=== PATIENT | male | born 1985 | race Caucasian/White ===

== ENCOUNTER 2018-05-21 18:40 | Emergency (ER) | payer OTHER ==
[2018-05-21] MEDS ORDERED: TERBUTALINE SULFATE INJ/PF 1 MG/1 ML SDV SUBCUT ONE (19:05)
--- NOTE | 2018-05-21 19:12 | ER Document Report ---
ED Medical Screen (RME) - General Chief Complaint: Penile Problem Stated Complaint: PENILE PROBLEMS Time Seen by Provider: 05/21/18 18:56 Notes: 32-year-old male patient reports waking up about 645 this morning with an erection. It has never gone down throughout the day. About 4 PM today he noticed that he could not put pants on to go help someone cut wood. He has been able to urinate through the erection. It is becoming somewhat painful. His regular medications are meloxicam and paroxetine. Patient did take some Benadryl about 5 PM and tried ice.. He has never had this problem in the past. I have greeted and performed a rapid initial assessment of this patient. A comprehensive ED assessment and evaluation of the patient, analysis of test results and completion of the medical decision making process will be conducted by additional ED providers. TRAVEL OUTSIDE OF THE [place] IN LAST 30 DAYS: No - Related Data Allergies/Adverse Reactions: iodine [Iodine] Allergy (Verified 05/21/18 18:42) Past Medical History Pulmonary Medical History: Reports: Hx Asthma Neurological Medical History: Denies: Hx Migraine, Hx Seizures Renal/ Medical History: Denies: Hx Peritoneal Dialysis - Immunizations Hx Diphtheria, Pertussis, Tetanus Vaccination: Yes Physical Exam - Vital signs Vitals: Temp Pulse Resp BP Pulse Ox 98.8 F 80 18 147/92 H 99 05/21/18 18:56 05/21/18 18:56 05/21/18 18:56 05/21/18 18:56 05/21/18 18:56 Course - Vital Signs Vital signs: Temp Pulse Resp BP Pulse Ox 98.8 F 80 18 147/92 H 99 05/21/18 18:56 05/21/18 18:56 05/21/18 18:56 05/21/18 18:56 05/21/18 18:56
[2018-05-21] MEDS ORDERED: PHENYLEPHRINE HCL INJ/PF 10 MG/1 ML SDV IM ONE ×3 (19:30→19:41)
[2018-05-21] MEDS ORDERED: PROMETHAZINE HCL 25 MG TABLET PO ONE (19:30)
[2018-05-21] MEDS ORDERED: OXYCODONE-ACETAMINOPHEN 5-325 MG TABLET PO ONE (19:30)
[2018-05-21] MEDS ORDERED: PHENYLEPHRINE HCL INJ/PF 10 MG/1 ML SDV SUBCUT ONE (19:48)
[2018-05-21] MEDS ORDERED: LIDOCAINE 1% INJ (10 MG/ML) 10 ML MDV INJ ONE (19:49)
[2018-05-21] MEDS ORDERED: HYDROMORPHONE HCL INJ/PF 2 MG/ML AMPULE IM ONE (19:50)
[2018-05-21 20:12] LABS: ABSOLUTE BASOPHILS # (AUTO) 0.1 10^3/uL (0.0-0.2); ABSOLUTE EOSINOPHILS # (AUTO) 0.6 10^3/uL (0.0-0.6); ABSOLUTE LYMPHOCYTES (AUTO) 2.7 10^3/uL (0.5-4.7); ABSOLUTE MONOCYTES (AUTO) 0.7 10^3/uL (0.1-1.4); BASOPHILS % (AUTO) 0.8 % (0-2); EOSINOPHILS % (AUTO) 6.8 % (0-6); HEMATOCRIT 42.5 % (37.9-51.0); HEMOGLOBIN 15.1 g/dL (13.5-17.0); LYMPHOCYTES % (AUTO) 29.8 % (13-45); MEAN CORPUSCULAR HEMOGLOBIN 30.7 pg (27.0-33.4); MEAN CORPUSCULAR HGB CONC 35.5 g/dL (32.0-36.0); MEAN CORPUSCULAR VOLUME 87 fl (80-97); MONOCYTES % (AUTO) 8.1 % (3-13); PLATELET COUNT 272 10^3/uL (150-450); RED BLOOD COUNT 4.91 10^6/uL (4.35-5.55); RED CELL DISTRIBUTION WIDTH 12.9 % (11.5-14.0); SEGMENTED NEUTROPHILS % (AUTO) 54.5 % (42-78); TOTAL CELLS COUNTED % (AUTO) 100 %; WHITE BLOOD COUNT 9.1 10^3/uL (4.0-10.5)
[2018-05-21 20:27] LABS: ALANINE AMINOTRANSFERASE 31 U/L (21-72); ALBUMIN 4.7 g/dL (3.5-5.0); ALKALINE PHOSPHATASE 83 U/L (38-126); ANION GAP 10 (5-19); ASPARTATE AMINO TRANSFERASE 28 U/L (17-59); BILIRUBIN,DIRECT 0.2 mg/dL (0.0-0.4); BILIRUBIN,TOTAL 0.4 mg/dL (0.2-1.3); BLOOD UREA NITROGEN 11 mg/dL (7-20); CALCIUM 9.8 mg/dL (8.4-10.2); CARBON DIOXIDE 30 mmol/L (22-30); CHLORIDE 101 mmol/L (98-107); GLUCOSE 122 mg/dL (75-110); POTASSIUM 4.3 mmol/L (3.6-5.0); SODIUM 141.4 mmol/L (137-145); TOTAL PROTEIN 7.6 g/dL (6.3-8.2)
[2018-05-21] MEDS ORDERED: PHENYLEPHRINE HCL INJ/PF 10 MG/1 ML SDV ONE (20:48)
[2018-05-21] MEDS ORDERED: PHENYLEPHRINE HCL INJ/PF 10 MG/1 ML SDV IV ONE (20:56)
--- NOTE | 2018-05-21 21:24 | ER Document Report ---
ED GI/ - General Chief Complaint: Penile Problem Stated Complaint: PENILE PROBLEMS Time Seen by Provider: 05/21/18 18:56 [facility] [[facility] - Follow up as needed Notes: Patient is a 32-year-old male that comes to the emergency department for chief complaint of an erection began at approximately 7 AM and has continued TRAVEL OUTSIDE OF THE [place] IN LAST 30 DAYS: No - Related Data Allergies/Adverse Reactions: iodine [Iodine] Allergy (Verified 05/21/18 18:42) Past Medical History - General Information source: Patient - Social History Smoking Status: Never Smoker Frequency of alcohol use: None Drug Abuse: None Lives with: Family Family History: Reviewed & Not Pertinent Patient has suicidal ideation: No Patient has homicidal ideation: No Pulmonary Medical History: Reports: Hx Asthma Neurological Medical History: Denies: Hx Migraine, Hx Seizures Renal/ Medical History: Denies: Hx Peritoneal Dialysis Psychiatric Medical History: Reports: Hx Anxiety, Hx Depression Surgical Hx: Negative - Immunizations Hx Diphtheria, Pertussis, Tetanus Vaccination: Yes Review of Systems - Review of Systems Constitutional: No symptoms reported EENT: No symptoms reported Cardiovascular: No symptoms reported Respiratory: No symptoms reported Gastrointestinal: No symptoms reported Genitourinary: See HPI Male Genitourinary: No symptoms reported Musculoskeletal: No symptoms reported Skin: No symptoms reported Hematologic/Lymphatic: No symptoms reported Neurological/Psychological: No symptoms reported Physical Exam - Vital signs Vitals: Temp Pulse Resp BP Pulse Ox 98.8 F 80 18 147/92 H 99 05/21/18 18:56 05/21/18 18:56 05/21/18 18:56 05/21/18 18:56 05/21/18 18:56 - Notes Notes: GENERAL: Alert, interacts well. Mildly uncomfortable in appearance. HEAD: Normocephalic, atraumatic. EYES: Pupils equal, round, and reactive to light. Extraocular movements intact. ENT: Oral mucosa moist, tongue midline. Oropharynx unremarkable. Airway patent. Nares patent, no nasal septal hematoma, TM's intact. NECK: Full range of motion. Supple. Trachea midline. LUNGS: Clear to auscultation bilaterally, no wheezes, rales, or rhonchi. No respiratory distress. HEART: Regular rate and rhythm. No murmur ABDOMEN: Soft, non-tender. Non-distended. Bowel sounds present in all 4 quadrants. GENITOURINARY: Hard erect penis. No cyanosis or necrosis noted. No severe tenderness, moderate pain on palpation. unremarkable otherwise. EXTREMITIES: Moves all 4 extremities spontaneously. No edema, normal radial and dorsalis pedis pulses bilaterally. No cyanosis. BACK: no cervical, thoracic, lumbar midline tenderness. No saddle anesthesia, normal distal neurovascular exam. NEUROLOGICAL: Alert and oriented x3. Normal speech. [cranial nerves II through XII grossly intact]. PSYCH: Normal affect, normal mood. SKIN: Warm, dry, normal turgor. No rashes or lesions noted. Course - Re-evaluation Re-evalutation: Patient does take Paxil. I do not see any other obvious cause of the priapism, could be the Paxil. Patient informed not to take this anymore. He will [facility] the [facility] Blake to bedside. Together we evacuated a large amount of blood, infused phenylephrine, patient did have resolution of his pain and some resolution of the swelling but his erection did not significantly resolve. Will contact urology for additional management. 05/21/18 21:[address] Sierra, urology on-call at [facility]. Explained concern because patient still has at least partial or more erection at this time despite drainage of blood and use of phenylephrine. He states it is good that we were able to aspirate blood from the patient after 12 hours, this is most likely a high flow priapism because of this. He does not recommend transfer. Recommendation is Victor Manuel-Synephrine nasal spray, ice packs to the area, avoiding sexual intercourse, and follow-up with urology office closely in the morning. He states will be able to reach somebody at the [place] office in the morning, patient will be referred for this. I discussed this with patient. I discussed that it is possible he will have some trouble with erections in the future because of some possible damage after 12 hours of erection. Discussed with Dr. Blake. I discussed strict return precautions with patient. Patient states understanding and agreement with plan. - Vital Signs Vital signs: Temp Pulse Resp BP Pulse Ox 97.4 F 71 18 131/74 H 98 05/21/18 22:13 05/21/18 22:13 05/21/18 22:13 05/21/18 22:13 05/21/18 22:13 - Laboratory Result Diagrams: 05/21/18 19:57 05/21/18 19:57 Laboratory results interpreted by me: 05/21/18 05/21/18 19:57 19:57 Eosinophils % 6.8 H Glucose 122 H Procedures - Additional Procedures Priapism drainage Additional Procedures: Other - Area was covered in sterile towels, skin was prepped along the shaft of the penis with ChloraPrep. Approximately 2-3 cc of 1% lidocaine was placed bilaterally. 23-gauge butterfly needles placed bilaterally attached to tubing and syringes, blood evacuated easily through these. Approximately 80 cc of blood evacuated initially, then continued to come easily. Bilaterally approximately 200 mcg of phenylephrine were infused through the tubing and then flushed with saline. Afterwards 10 mg of phenylephrine he has a 500 cc bag and the area was flushed using syringes of approximately 40 cc bilaterally. This was flushed/irrigated several times. Critical Care Note - Critical Care Note Total time excluding time spent on procedures (mins): 35 - priapism Comments: Please allow 35 minutes of critical care time excluding time spent on procedures for evaluation and management of patient with priapism that lasted for over12 hours. Interventions including multiple medications doses, time spent discussing with urology consultation and with patient. Discharge - Discharge Clinical Impression: Priapism, Penile pain Condition: Stable Disposition: HOME, SELF-CARE Additional Instructions: I spoke with Dr. Sierra, urology on-call with [facility] ([place]). Recommendations are frequent ice packs to the area, using the Victor Manuel-Synephrine spray every 4 hours as provided, and calling for immediate follow-up with urologist in the morning. Do not have intercourse until cleared by Urology. See the number to call, call at 8 AM in the morning to be seen as soon as possible. Stop the Paxil medication. Return if you worsen in any way including increased swelling of the penis, return pain, or any other concerning or worsening symptoms. [facility] Urology [place] [phone] Backup number: [facility] Urology [place] [phone] Referrals: [facility] [Primary [facility] Provider] - Follow up as needed
[2018-05-21] MEDS ORDERED: PSEUDOEPHEDRINE HCL 30 MG TABLET PO ONE (21:30)
[2018-05-21] MEDS ORDERED: PHENYLEPHRINE HCL 0.5% NASAL SPRAY 15 ML NASL SCH (21:45)
[2018-05-21 22:18] VITALS: BP 131/74
[2018-05-21] MEDS ORDERED: PHENYLEPHRINE HCL 0.5% NASAL SPRAY 15 ML ONE (22:23)
== END 2018-05-21 22:22 | disposition home or self-care (01) ==
LOC: ER 18:40
DX: N48.30 Priapism, unspecified (principal); N48.89 Other specified disorders of penis
CPT/HCPCS: 99285; 96372; 36415; 85025; 80053; 54220; J1170; J2370; J3490

== ENCOUNTER 2018-09-28 03:50 | Emergency (ER) | payer OTHER ==
[2018-09-28] MEDS ORDERED: TETRACAINE HCL 0.5% OPH SOLN 4 ML OD ONE (08:44)
--- NOTE | 2018-09-28 08:46 | ER Document Report ---
HPI - HPI Patient complains to provider of: R eye swelling Time Seen by Provider: 09/28/18 08:23 Pain Level: 3 Context: 32-year-old male presents the emergency department with chief complaint of right eye lid redness and swelling. He states that it occurred last night and it got worse overnight. It woke him up at 330 this morning prompting him to get seen in the emergency department. He states that he is having blurred vision, photophobia, and pain with eye movement. He is able to move his eye around. He denies fevers, chills, neck stiffness, headache, earache, sore throat. No other complaints. - EENT EENT: REPORTS: Eye problems. DENIES: Sore Throat, Ear Pain - NEURO Neurology: DENIES: Headache, Weakness, Vision blurred, Dizzinesss / Vertigo - CARDIOVASCULAR Cardiovascular: DENIES: Chest pain - RESPIRATORY Respiratory: DENIES: Trouble Breathing, Coughing - GASTROINTESTINAL Gastrointestinal: DENIES: Abdominal Pain, Black / Bloody Stools - URINARY Urinary: DENIES: Dysuria, Urgency, Frequency - REPRODUCTIVE Reproductive: DENIES: :, Postmenopausal, Abnormal bleeding / discharge - MUSCULOSKELETAL Musculoskeletal: DENIES: Extremity pain Past Medical History - Social History Smoking Status: Never Smoker Family History: Reviewed & Not Pertinent Patient has suicidal ideation: No Patient has homicidal ideation: No Pulmonary Medical History: Reports: Hx Asthma Neurological Medical History: Denies: Hx Migraine, Hx Seizures Renal/ Medical History: Denies: Hx Peritoneal Dialysis Psychiatric Medical History: Reports: Hx Anxiety, Hx Depression - Immunizations Hx Diphtheria, Pertussis, Tetanus Vaccination: Yes Vertical Provider Document - CONSTITUTIONAL Notes: PHYSICAL EXAMINATION: Reviewed vital signs and charting by RN GENERAL: Alert, interacts well. No acute distress. HEAD: Normocephalic, atraumatic. EYES: Pupils equal, round, and reactive to light. Extraocular movements intact. Swelling and inflammation of the right eyelid with acute tenderness with any touch, no matting or any discharge of the eyelids, no scleral injection ENT: Oral mucosa moist, tongue midline. NECK: Full range of motion. Supple. Trachea midline. EXTREMITIES: Moves all 4 extremities spontaneously. No edema, No cyanosis. PSYCH: Normal affect, normal mood. SKIN: Warm, dry, normal turgor. No rashes or lesions noted. - INFECTION CONTROL TRAVEL OUTSIDE OF THE [place] IN LAST 30 DAYS: No Course - Re-evaluation Re-evalutation: 09/28/18 15:17 Presentation consistent with a chalazion. Tetracaine drops placed and floor seen stain the right eye, with Scherer lamp I did not see any evidence of a corneal abrasion, corneal ulcer issues with the cornea. No evidence of p reorbital cellulitis as it is strictly with eyelid involvement. There is no evidence of orbital cellulitis and no eye entrapment at this time. I have given the patient erythromycin ointment and instructed him to place a ribbon along the eye 6 times a day and to perform hot compresses several times a day to the affected eye. Stable for discharge. - Vital Signs Vital signs: Temp Pulse Resp BP Pulse Ox 98.1 F 65 16 153/90 H 98 09/28/18 06:13 09/28/18 06:13 09/28/18 03:53 09/28/18 06:13 09/28/18 06:13 Discharge - Discharge Clinical Impression: Chalazion of right eyelid Qualifiers: Eyelid: upper Qualified Code(s): H00.11 - Chalazion right upper eyelid Condition: Good Disposition: HOME, SELF-CARE Instructions: Antibiotic Therapy ([facility]) Additional Instructions: You were seen in the emergency department this morning for a chalazion, also known as a stye. This can be very painful and the treatment is hot compresses 5 to 10 minutes at a time frequently throughout the day. You need to ensure that the regular use stays hot so you may too frequently re-soaked it with hot water. Also have given you a prescription called erythromycin. Place one ribbon in the bottom eyelid up to 6 times per day. This will help with any infection and will also help soothe the eye. If you develop a fever, you develop worsening redness, you develop redness that starts to infiltrate completely around your eye, or you are unable to move your eye i.e. entrapment please immediately return to the emergency department as this is a sign of worsening you will probably need antibiotics. Referrals: [facility] [Primary [facility]] - Follow up as needed
[2018-09-28 08:59] VITALS: BP 166/94
[2018-09-28] MEDS ORDERED: ERYTHROMYCIN 0.5% OPH OINTMENT 3.5 GM (ER DISP) OD PRN (09:17)
== END 2018-09-28 09:39 | disposition home or self-care (01) ==
LOC: ER 03:50
DX: H00.11 Chalazion right upper eyelid (principal); J45.909 Unspecified asthma, uncomplicated
CPT/HCPCS: 99282; J3490

== ENCOUNTER 2018-09-29 04:53 | Observation (INO) | payer OTHER ==
--- NOTE | 2018-09-29 06:02 | ER Document Report ---
ED Medical Screen (RME) - General Chief Complaint: Eye Problem Stated Complaint: EYE SWOLLEN, DRAINING Time Seen by Provider: 09/29/18 05:35 Primary Care Provider: ROB[facility]ONE [Primary Care Provider] - Follow up as needed Mode of Arrival: Ambulatory Information source: Patient Notes: Patient is a 32-year-old male presented emergency department with complaints of pain and swelling to the right eye. Patient reports he was diagnosed with a chalazion yesterday and placed on Eliquis Romycin ointment. Patient reports symptoms have significantly gotten worse since then. He has significant upper lid edema and pain with any movement of his eye. I have greeted and performed a rapid initial assessment of this patient. A comprehensive ED assessment and evaluation of the patient, analysis of test results and completion of the medical decision making process will be conducted by additional ED providers. Dictation of this chart was performed using voice recognition software; therefore, there may be some unintended grammatical errors. TRAVEL OUTSIDE OF THE [place] IN LAST 30 DAYS: No - Related Data Allergies/Adverse Reactions: iodine [Iodine] Allergy (Verified 05/21/18 18:42) Past Medical History Pulmonary Medical History: Reports: Hx Asthma Neurological Medical History: Denies: Hx Migraine, Hx Seizures Renal/ Medical History: Denies: Hx Peritoneal Dialysis Psychiatric Medical History: Reports: Hx Anxiety, Hx Depression - Immunizations Hx Diphtheria, Pertussis, Tetanus Vaccination: Yes Physical Exam - Vital signs Vitals: Temp Pulse Resp BP Pulse Ox 97.9 F 65 16 125/88 H 99 09/29/18 04:57 09/29/18 04:57 09/29/18 04:57 09/29/18 04:57 09/29/18 04:57 Course - Vital Signs Vital signs: Temp Pulse Resp BP Pulse Ox 97.9 F 65 16 125/88 H 99 09/29/18 04:57 09/29/18 04:57 09/29/18 04:57 09/29/18 04:57 09/29/18 04:57 Doctor's Discharge - Discharge [facility]errals: [facility] [[facility] - Follow up as needed
--- NOTE | 2018-09-29 06:15 | ER Document Report ---
Doctor's Note Notes: 09/29/18 06:15 Patient has syncopal episode while trying to obtain IV access. Patient now reports anaphylactic reactions in the past to any and all contact with iodine. Order changed to CT of the orbits without contrast.
--- NOTE | 2018-09-29 06:54 | RADIOLOGY REPORT (SQ) ---
EXAM DESCRIPTION: [facility]: CT ORBITS WITHOUT IV CONTRAST CLINICAL HISTORY: 32 years Male; right eye swelling, pain, r/o oribital cellulitis TECHNIQUE: CT orbits without contrast All CT scans at this facility use dose modulation, iterative reconstruction, and/or weight based dosing when appropriate to reduce radiation dose to as low as reasonably achievable. COMPARISON: None. FINDINGS: There is right preseptal periorbital soft tissue edema. No retro-orbital edema. No acute periorbital fractures. No sinus air-fluid levels. No hyperdense foreign bodies. IMPRESSION: 1. Right preseptal periorbital cellulitis. 2. No retro-orbital involvement.
[2018-09-29] MEDS ORDERED: CLINDAMYCIN 600 MG/D5W RTU 600 MG/50 ML RTUPB IV ONE (10:19)
--- NOTE | 2018-09-29 10:30 | ER Document Report ---
ED General - General Chief Complaint: Eye Problem Stated Complaint: EYE SWOLLEN, DRAINING Time Seen by Provider: 09/29/18 05:35 Mode of Arrival: Ambulatory Information source: Patient, [facility] Records Notes: 32-year-old male with asthma, PTSD presents with right eye pain, swelling. Patient states that 3 days prior to arrival he noticed a small stye on his right eye. He states I progressively became more painful, swollen and red. He was seen yesterday and diagnosed with the to lazy on and placed on erythromycin ophthalmic ointment. He states overnight his pain increased and he is now unab le to open his eye. He denies prior similar symptoms, fever, chills, vomiting. Does admit to associated nausea. Patient wears glasses but no contacts. TRAVEL OUTSIDE OF THE [place] IN LAST 30 DAYS: No - HPI Onset: Other Onset/Duration: Gradual, Persistent, Worse Quality of pain: Pressure, Throbbing Severity: Moderate Pain Level: 2 Associated symptoms: Nausea. denies: Body/muscle aches, Chest pain, Diarrhea, Fever, Vomiting, Shortness of breath Exacerbated by: Other - Eye movement Relieved by: Denies Similar symptoms previously: No Recently seen / treated by doctor: Yes - Related Data Allergies/Adverse Reactions: iodine [Iodine] Allergy (Verified 05/21/18 18:42) Past Medical History - General Information source: Patient - Social History Smoking Status: Never Smoker Chew tobacco use (# tins/day): No Frequency of alcohol use: None Drug Abuse: None Lives with: Spouse/Significant other Family History: Reviewed & Not Pertinent Patient has suicidal ideation: No Patient has homicidal ideation: No Pulmonary Medical History: Reports: Hx Asthma Neurological Medical History: Denies: Hx Migraine, Hx Seizures Renal/ Medical History: Denies: Hx Peritoneal Dialysis Psychiatric Medical History: Reports: Hx Anxiety, Hx Depression - Immunizations Hx Diphtheria, Pertussis, Tetanus Vaccination: Yes Review of Systems - Review of Systems Notes: REVIEW OF SYSTEMS: CONSTITUTIONAL : Denies fever, chills, or sweats. Denies recent illness. Denies weight loss, recent hospitalizations. EENT: + visual changes, eye pain. Denies sore throat, oral lesions, difficulty swallowing. CARDIOVASCULAR: Denies chest pain. Denies palpitations. Denies lower extremity edema. RESPIRATORY: Denies cough. Denies shortness of breath, wheezing. GASTROINTESTINAL: Denies abdominal pain or distention. Denies vomiting, or diarrhea. Denies blood in vomitus, stools, or per rectum. Denies black, tarry stools. Denies constipation. GENITOURINARY: Denies difficulty urinating, painful urination, frequency, blood in urine, testicular pain or penile discharge. MUSCULOSKELETAL: Denies back or neck pain or stiffness. Denies joint pain or swelling. SKIN: Denies rash, lesions or sores. HEMATOLOGIC : Denies easy bruising or bleeding. LYMPHATIC: Denies swollen glands. NEUROLOGICAL: Denies confusion or altered mental status. Denies loss of consciousness. Denies dizziness or lightheadedness. Denies headache. Denies weakness or paralysis. Denies problems difficulty with ambulation, slurred speech. Denies sensory loss, numbness, or tingling. Denies seizures. PSYCHIATRIC: Denies anxiety or stress. Denies depression, suicidal ideation, or Physical Exam - Vital signs Vitals: Temp Pulse Resp BP Pulse Ox 97.9 F 65 16 125/88 H 99 09/29/18 04:57 09/29/18 04:57 09/29/18 04:57 09/29/18 04:57 09/29/18 04:57 - Notes Notes: PHYSICAL EXAMINATION: GENERAL: Well-appearing, well-nourished and in no acute distress. HEAD: Atraumatic, normocephalic. EYES: Left pupil equal round and reactive to light, extraocular movements intact, sclera anicteric. Right eye-periorbital pain with palpation. Right upper lid swelling, erythema and purulent discharge. Right pupil unable to assess. ENT: Nares patent, oropharynx clear without exudates. Moist mucous membranes. NECK: Normal range of motion, supple without lymphadenopathy LUNGS: Breath sounds clear to auscultation bilaterally and equal. No wheezes rales or rhonchi. HEART: Regular rate and rhythm without murmurs ABDOMEN: Soft, nontender, nondistended abdomen. No guarding, no rebound. No masses appreciated. Musculoskeletal: Normal range of motion, no pitting or edema. No cyanosis. NEUROLOGICAL: Cranial nerves grossly intact. Normal speech, normal gait. Normal sensory, motor exams PSYCH: Normal mood, normal affect. SKIN: Warm, Dry, normal turgor, no rashes or lesions noted. Course - Re-evaluation Re-evalutation: 09/29/18 11:43 Laboratory 09/29/18 09/29/18 10:34 10:34 WBC 12.4 H RBC 4.99 Hgb 14.8 Hct 42.9 MCV 86 MCH 29.7 MCHC 34.5 RDW 12.9 Plt Count 241 Seg Neutrophils % 64.4 Lymphocytes % 22.8 Monocytes % 7.3 Eosinophils % 5.0 Basophils % 0.5 Absolute Neutrophils 8.0 Absolute Lymphocytes 2.8 Absolute Monocytes 0.9 Absolute Eosinophils 0.6 Absolute Basophils 0.1 Sodium 143.4 Potassium 4.9 Chloride 105 Carbon Dioxide 30 Anion Gap 8 BUN 14 Creatinine 1.00 Est GFR ( Amer) > 60 Est GFR (Non-Af Amer) > 60 Glucose 97 Calcium 10.0 Total Bilirubin 0.5 Direct Bilirubin 0.3 Neonat Total Bilirubin Not Reportable Neonat Direct Bilirubin Not Reportable Neonat Indirect Bili Not Reportable AST 21 ALT 35 Alkaline Phosphatase 98 Total Protein 7.[address] 09/29/18 06:13 IMPRESSION: 1. Right preseptal periorbital cellulitis. 2. No retro-orbital involvement. Temp Pulse Resp BP Pulse Ox 98.3 F 64 16 108/75 99 09/29/18 06:39 09/29/18 06:39 09/29/18 06:39 09/29/18 06:39 09/29/18 06:39 32-year-old male presents with right eye pain significantly worse since yesterday. Recently placed on erythromycin without improvement. CT of the orbit show a right preseptal periorbital cellulitis with no retro-orbital involvement. Patient was started on clindamycin. CBC does show a mild leukocytosis. Due to the rapid progression of this patient has been admitted for observation to [facility]. 09/29/18 11:43 - Vital Signs Vital signs: Temp Pulse Resp BP Pulse Ox 98.3 F 64 16 108/75 99 09/29/18 06:39 09/29/18 06:39 09/29/18 06:39 09/29/18 06:39 09/29/18 06:39 - Laboratory Result Diagrams: 09/29/18 10:34 09/29/18 10:34 Laboratory results interpreted by me: 09/29/18 10:34 WBC 12.4 H - Diagnostic Test Radiology reviewed: Image reviewed, Reports reviewed Discharge - Discharge Clinical Impression: Periorbital cellulitis of right eye Condition: Good Disposition: ADMITTED OBSERVATION Admitting Provider: Bernadine (Hospitalist) Unit Admitted: Medical Floor
[2018-09-29 10:46] LABS: ABSOLUTE BASOPHILS # (AUTO) 0.1 10^3/uL (0.0-0.2); ABSOLUTE EOSINOPHILS # (AUTO) 0.6 10^3/uL (0.0-0.6); ABSOLUTE LYMPHOCYTES (AUTO) 2.8 10^3/uL (0.5-4.7); ABSOLUTE MONOCYTES (AUTO) 0.9 10^3/uL (0.1-1.4); BASOPHILS % (AUTO) 0.5 % (0-2); HEMATOCRIT 42.9 % (37.9-51.0); HEMOGLOBIN 14.8 g/dL (13.5-17.0); LYMPHOCYTES % (AUTO) 22.8 % (13-45); MEAN CORPUSCULAR HEMOGLOBIN 29.7 pg (27.0-33.4); MEAN CORPUSCULAR HGB CONC 34.5 g/dL (32.0-36.0); MEAN CORPUSCULAR VOLUME 86 fl (80-97); MONOCYTES % (AUTO) 7.3 % (3-13); PLATELET COUNT 241 10^3/uL (150-450); RED BLOOD COUNT 4.99 10^6/uL (4.35-5.55); RED CELL DISTRIBUTION WIDTH 12.9 % (11.5-14.0); SEGMENTED NEUTROPHILS % (AUTO) 64.4 % (42-78); TOTAL CELLS COUNTED % (AUTO) 100 %; WHITE BLOOD COUNT 12.4 10^3/uL (4.0-10.5)
[2018-09-29 11:09] LABS: ALANINE AMINOTRANSFERASE 35 U/L (21-72); ALBUMIN 4.5 g/dL (3.5-5.0); ALKALINE PHOSPHATASE 98 U/L (38-126); ANION GAP 8 (5-19); ASPARTATE AMINO TRANSFERASE 21 U/L (17-59); BILIRUBIN,DIRECT 0.3 mg/dL (0.0-0.4); BILIRUBIN,TOTAL 0.5 mg/dL (0.2-1.3); BLOOD UREA NITROGEN 14 mg/dL (7-20); CARBON DIOXIDE 30 mmol/L (22-30); CHLORIDE 105 mmol/L (98-107); GLUCOSE 97 mg/dL (75-110); POTASSIUM 4.9 mmol/L (3.6-5.0); SODIUM 143.4 mmol/L (137-145); TOTAL PROTEIN 7.6 g/dL (6.3-8.2)
[2018-09-29] MEDS: ACETAMINOPHEN 325 MG TABLET PO PRN (12:36)
[2018-09-29] MEDS: CEFPODOXIME 200 MG TABLET PO SCH ×2 (13:42→21:17)
[2018-09-29] MEDS: IBUPROFEN 800 MG TABLET PO PRN ×2 (13:42→21:20)
[2018-09-29] MEDS: TOBRAMYCIN SULFATE/DEXAMETH OPH OINTMENT 3.5 GM OD SCH (17:50)
[2018-09-29] MEDS: CLINDAMYCIN 300 MG/D5W RTU 300 MG/50 ML RTUPB IV SCH (17:50)
[2018-09-29] MEDS: FAMOTIDINE 20 MG TABLET PO SCH (21:17)
[2018-09-30] MEDS: CLINDAMYCIN 300 MG/D5W RTU 300 MG/50 ML RTUPB IV SCH ×2 (02:31→10:23)
[2018-09-30] MEDS: ACETAMINOPHEN 325 MG TABLET PO PRN (02:35)
[2018-09-30] MEDS ORDERED: ALBUTEROL SULFATE HFA (90 MCG/PUFF) 200 PUFF/8.5 GM MDI IH PRN (05:07)
--- NOTE | 2018-09-30 05:11 | PDOC H&P ---
History of Present Illness Admission Date/PCP: 09/29/18 10:36 [facility] Patient complains of: R EYELID SWELLING History of Present Illness: RONN VUONG is a 32 year old male with a PMH PTSD presented to [facility] for R eyelid swelling. The patient states he first noticed a small area of erythema on his eyelid 2 days ago. Yesterday, he came to the ED and was discharged home with prescriptions for erythromycin ointment. The patient states used the medication last night, then woke up this morning and the entire R eyelid was swollen shut. The patient returned to the ED this morning. CT of the R orbit was done, it showed preseptal cellulitis. The patient's lab work is benign, only a mild leukocytosis (WBC 12.4) and his vital signs are WNL. In the ED, he was treated with a dose of clindamycin. Upon assessment, there is erythema and edema to the entire R eyelid. The patient is unable to open his eye and endorses photophobia, pain with ocular movement and mild watery drainage from the eye. Plan to admit the patient to hositalist service and consult ophthalmology for preseptal cellulitis. Past Medical History Pulmonary Medical History: Reports: Asthma Neurological Medical History: Denies: Migraine, Seizures Psychiatric Medical History: Reports: Depression, Post Traumatic Stress Disorder Past Surgical History Past Surgical History: Reports: None Social History Information Source: Patient Lives with: Spouse/Significant other Smoking Status: Never Smoker Frequency of Alcohol Use: None Hx Recreational Drug Use: No Drugs: None Hx Prescription Drug Abuse: No - Advance Directive Resuscitation Status: Full Code Family History Family History: Reviewed & Not Pertinent Parental Family History Reviewed: Yes Children Family History Reviewed: NA Sibling(s) Family History Reviewed.: Yes Medication/Allergy Home Medications: Albuterol Sulfate [Proair HFA Inhalation Aerosol 8.5 gm MDI] 1 puff IH Q4HP PRN 09/29/18 Erythromycin Base [E-Mycin 0.5% Oph Ointment 3.5 gm] 1 applic OD 6XD 09/29/18 Oxycodone HCl/Acetaminophen [Percocet 5-325 mg Tablet] 1 tab PO Q8HP PRN 09/29/18 Allergies/Adverse Reactions: iodine [Iodine] Allergy (Verified 05/21/18 18:42) Review of Systems Constitutional: ABSENT: fever(s), headache(s) Eyes: PRESENT: visual disturbances Ears: ABSENT: hearing changes Nose, Mouth, and Throat: ABSENT: headache(s) Cardiovascular: ABSENT: chest pain Respiratory: ABSENT: dyspnea Gastrointestinal: ABSENT: abdominal pain, constipation, diarrhea, hematemesis, hematochezia, nausea, vomiting Genitourinary: ABSENT: dysuria, hematuria Musculoskeletal: ABSENT: joint swelling Integumentary: ABSENT: rash, wounds Neurological: ABSENT: abnormal gait, abnormal speech, confusion, dizziness, focal weakness, syncope Psychiatric: ABSENT: anxiety, depression, homidical ideation, suicidal ideation Endocrine: ABSENT: cold intolerance, heat intolerance, polydipsia, polyuria Hematologic/Lymphatic: ABSENT: easy bleeding, easy bruising Physical Exam Vital Signs: Temp Pulse Resp BP Pulse Ox 98.4 F 75 18 132/65 H 100 09/29/18 19:52 09/29/18 19:52 09/29/18 19:52 09/29/18 19:52 09/29/18 19:52 Intake & Output 09/28/18 09/29/18 09/30/18 06:59 06:59 06:59 Intake Total 370 Balance 370 Weight 127.006 kg 127 kg General appearance: PRESENT: no acute distress, well-developed, well-nourished Head exam: PRESENT: atraumatic, normocephalic Eye exam: PRESENT: conjunctiva pink, periorbital swelling - RIGHT, other - ERYTHEMA AND EDEMA TO R EYELID. ABSENT: PERRLA - UNABLE TO ASSESS R PUPIL Ear exam: PRESENT: normal external ear exam Mouth exam: PRESENT: moist, tongue midline Neck exam: ABSENT: carotid bruit, JVD, lymphadenopathy, thyromegaly Respiratory exam: PRESENT: clear to auscultation puneet. ABSENT: rales, rhonchi, wheezes Cardiovascular exam: PRESENT: RRR. ABSENT: diastolic murmur, rubs, systolic murmur Pulses: PRESENT: normal dorsalis pedis pul Vascular exam: PRESENT: normal capillary refill GI/Abdominal exam: PRESENT: normal bowel sounds, soft. ABSENT: distended, guarding, mass, organolmegaly, rebound, tenderness Rectal exam: PRESENT: deferred Extremities exam: PRESENT: full ROM. ABSENT: calf tenderness, clubbing, pedal edema Neurological exam: PRESENT: alert, awake, oriented to person, oriented to place, oriented to time, oriented to situation, CN II-XII grossly intact. ABSENT: motor sensory deficit Psychiatric exam: PRESENT: appropriate affect, normal mood. ABSENT: homicidal ideation, suicidal ideation Skin exam: PRESENT: dry, intact, warm. ABSENT: cyanosis, rash Results Laboratory Results: 09/29/18 10:34 09/29/18 10:34 09/29/18 09/29/18 10:34 10:34 WBC 12.4 H RBC 4.99 Hgb 14.8 Hct 42.9 MCV 86 MCH 29.7 MCHC 34.5 RDW 12.9 Plt Count 241 Seg Neutrophils % 64.4 Lymphocytes % 22.8 Monocytes % 7.3 Eosinophils % 5.0 Basophils % 0.5 Absolute Neutrophils 8.0 Absolute Lymphocytes 2.8 Absolute Monocytes 0.9 Absolute Eosinophils 0.6 Absolute Basophils 0.1 Sodium 143.4 Potassium 4.9 Chloride 105 Carbon Dioxide 30 Anion Gap 8 BUN 14 Creatinine 1.00 Est GFR ( Amer) > 60 Est GFR (Non-Af Amer) > 60 Glucose 97 Calcium 10.0 Total Bilirubin 0.5 AST 21 ALT 35 Alkaline Phosphatase 98 Total Protein 7.6 Albumin 4.5 Impressions: Orbit CT 09/29/18 06:13 IMPRESSION: 1. Right preseptal periorbital cellulitis. 2. No retro-orbital involvement. Status: Imported from PACS Assessment and Plan - Diagnosis (1) Preseptal cellulitis of right eye Is this a current diagnosis for this admission?: Yes Plan: Likely stemming from chalazion Failed initial therapy of erythromycin ointment Optho consulted, appreciate their expertise Treat with IV clindamycin and PO cefpodoxime Warm compress to R eye QID (2) History of posttraumatic stress disorder (PTSD) Is this a current diagnosis for this admission?: Yes Plan: Stable Not taking any medications at this time - Time Time Spent with patient: 15-24 minutes Medications reviewed and adjusted accordingly: Yes Anticipated discharge: Home Within: within 24 hours - Inpatient Certification Based on my medical assessment, after consideration of the patient's comorbi dities, presenting symptoms, or acuity I expect that the services needed warrant INPATIENT care.: Yes I certify that my determination is in accordance with my understanding of Medicare's requirements for reasonable and necessary INPATIENT services [42 CFR 412.3e].: Yes Medical Necessity: Need for IV Antibiotics
[2018-09-30 06:45] LABS: HEMATOCRIT 39.2 % (37.9-51.0); HEMOGLOBIN 13.4 g/dL (13.5-17.0); MEAN CORPUSCULAR HEMOGLOBIN 29.5 pg (27.0-33.4); MEAN CORPUSCULAR HGB CONC 34.2 g/dL (32.0-36.0); MEAN CORPUSCULAR VOLUME 86 fl (80-97); PLATELET COUNT 216 10^3/uL (150-450); RED BLOOD COUNT 4.53 10^6/uL (4.35-5.55); WHITE BLOOD COUNT 9.1 10^3/uL (4.0-10.5)
[2018-09-30 06:56] LABS: ANION GAP 10 (5-19); BLOOD UREA NITROGEN 18 mg/dL (7-20); CALCIUM 9.2 mg/dL (8.4-10.2); CARBON DIOXIDE 27 mmol/L (22-30); CHLORIDE 106 mmol/L (98-107); GLUCOSE 98 mg/dL (75-110); PHOSPHORUS 4.5 mg/dL (2.5-4.5); SODIUM 143.3 mmol/L (137-145)
[2018-09-30] MEDS: FAMOTIDINE 20 MG TABLET PO SCH (10:23)
[2018-09-30] MEDS: TOBRAMYCIN SULFATE/DEXAMETH OPH OINTMENT 3.5 GM OD SCH (10:23)
[2018-09-30] MEDS: CEFPODOXIME 200 MG TABLET PO SCH (10:23)
[2018-09-30] MEDS: IBUPROFEN 800 MG TABLET PO PRN (12:13)
[2018-09-30 13:30] VITALS: BP 136/79
--- NOTE | 2018-10-07 10:19 | PDOC DISCHARGE SUMMARY ---
General - Admit/Disc Date/PCP Admission Date/Primary Care Provider: 09/29/18 10:36 [facility] Discharge Date: 09/30/18 - Discharge Diagnosis (1) History of posttraumatic stress disorder (PTSD) Is this a current diagnosis for this admission?: Yes Summary: Secondary to chalazion Failed initial therapy of erythromycin ointment Patient was admitted to the medical floor and started on IV clindamycin and p.o cefpodoxime. Optho consulted, spoke with Dr. Cisneros on day of discharge. Dr. Cisneros recommends p.o. Augmentin, tobramycin eye gtt, and continuing warm compress to R eye QID. Patient is discharged to home in inmproved and stable condition. He is advised to follow up with his PCP within [address] Cisneros if he does not improve or worsen. He is instructed to return to the emergency department for any concerning symptoms. (2) Periorbital cellulitis of right eye Is this a current diagnosis for this admission?: No Summary: Stable; not on home medications. Supportive care. - Additional Information Resuscitation Status: Full Code Discharge Diet: Regular Discharge Activity: Activity As Tolerated Prescriptions: Amox Tr/Potassium Clavulanate [Augmentin 875-125 mg Tablet] 1 tab PO BID #20 tablet Tobramycin Sulfate/Dexameth [Tobradex Oph Ointment 3.5 gm] 1 applic OD BID #1 tu be Home Medications: Albuterol Sulfate [Proair HFA Inhalation Aerosol 8.5 gm MDI] 1 puff IH Q4HP PRN 09/29/18 Oxycodone HCl/Acetaminophen [Percocet 5-325 mg Tablet] 1 tab PO Q8HP PRN 09/29/18 Acetaminophen [Tylenol 325 mg Tablet] 975 mg PO Q6HP PRN tablet 09/30/18 Amox Tr/Potassium Clavulanate [Augmentin 875-125 mg Tablet] 1 tab PO BID #20 tablet 09/30/18 Ibuprofen [Motrin 800 mg Tablet] 800 mg PO Q6HP PRN tablet 09/30/18 Tobramycin Sulfate/Dexameth [Tobradex Oph Ointment 3.5 gm] 1 applic OD BID #1 tube 09/30/18 History of Present Illness History of Present Illness: Per H&P by Cecily Otero NP-C: RONN VUONG is a 32 year old male with a PMH PTSD presented to [facility] for R eyelid swelling. The patient states he first noticed a small area of erythema on his eyelid 2 days ago. Yesterday, he came to the ED and was discharged home with prescriptions for erythromycin ointment. The patient states used the medication last night, then woke up this morning and the entire R eyelid was swollen shut. The patient returned to the ED this morning. CT of the R orbit was done, it showed preseptal cellulitis. The patient's lab work is benign, only a mild leukocytosis (WBC 12.4) and his vital signs are WNL. In the ED, he was treated with a dose of clindamycin. Upon assessment, there is erythema and edema to the entire R eyelid. The patient is unable to open his eye and endorses photophobia, pain with ocular movement and mild watery drainage from the eye. Plan to admit the patient to hositalist service and consult ophthalmology for preseptal cellulitis. Physical Exam Vital Signs: Temp Pulse Resp BP Pulse Ox 98.6 F 74 20 136/79 H 95 09/30/18 13:28 09/30/18 13:28 09/30/18 13:28 09/30/18 13:28 09/30/18 13:28 General appearance: PRESENT: no acute distress, obese, well-developed, well- nourished Head exam: PRESENT: atraumatic, normocephalic Eye exam: PRESENT: conjunctiva pink, EOMI, periorbital swelling - mild right upper eye lid edema and erythema, PERRLA. ABSENT: scleral icterus Ear exam: PRESENT: normal external ear exam Mouth exam: PRESENT: moist, tongue midline Neck exam: ABSENT: carotid bruit, JVD, lymphadenopathy, thyromegaly Respiratory exam: PRESENT: clear to auscultation puneet. ABSENT: rales, rhonchi, wheezes Cardiovascular exam: PRESENT: RRR. ABSENT: diastolic murmur, rubs, systolic murmur Pulses: PRESENT: normal dorsalis pedis pul Vascular exam: PRESENT: normal capillary refill GI/Abdominal exam: PRESENT: normal bowel sounds, soft. ABSENT: distended, guarding, mass, organolmegaly, rebound, tenderness Rectal exam: PRESENT: deferred Extremities exam: PRESENT: full ROM. ABSENT: calf tenderness, clubbing, pedal edema Neurological exam: PRESENT: alert, awake, oriented to person, oriented to place, oriented to time, oriented to situation, CN II-XII grossly intact. ABSENT: motor sensory deficit Psychiatric exam: PRESENT: appropriate affect, normal mood. ABSENT: homicidal ideation, suicidal ideation Skin exam: PRESENT: dry, intact, warm. ABSENT: cyanosis, rash Results Laboratory Results: 09/30/18 06:19 09/30/18 06:19 Impressions: Orbit CT 09/29/18 06:13 IMPRESSION: 1. Right preseptal periorbital cellulitis. 2. No retro-orbital involvement. Qualifiers - * PATIENT BEING DISCHARGED WITH ANY OF THE FOLLOWING DIAGNOSIS: No Acute Heart Failure - Is this a Heart Failure Patient?: No LVEF < 40%?: No- if no continue to question #3 Plan Discharge Plan: Discharge to home with self care. Continue Augmentin p.o. and Tobramycin ggt. Follow up with PCP within 1 week. Follow up with Dr. Cisneros, vice president industrial relations, as needed. Time Spent: Greater than 30 Minutes
== END 2018-09-30 13:41 | disposition home or self-care (01) ==
LOC: ER 04:53 → EH 10:36 → 4S 11:36
PROVIDERS: ADMIT Internal Medicine; ATTEND Internal Medicine
DX: L03.213 Periorbital cellulitis (principal); H00.13 Chalazion right eye, unspecified eyelid; H53.141 Visual discomfort, right eye; F43.10 Post-traumatic stress disorder, unspecified; R55 Syncope and collapse; R11.0 Nausea; E66.9 Obesity, unspecified; J45.909 Unspecified asthma, uncomplicated; M54.9 Dorsalgia, unspecified; D72.829 Elevated white blood cell count, unspecified; Z87.892 Personal history of anaphylaxis; Z91.041 Radiographic dye allergy status; Z79.899 Other long term (current) drug therapy; Z79.891 Long term (current) use of opiate analgesic
CPT/HCPCS: 99284; 36415 ×2; 83735; 84100; 85025; 85027; 80048; 80053; 70480; G0378 ×2; J3490 ×3

== ENCOUNTER 2019-02-24 07:13 | Emergency (ER) | payer OTHER ==
[2019-02-24] MEDS ORDERED: POLYMYXIN B SULFATE/TMP OPH SOLN (10 ML/ER DISP) OS ONE (09:17)
--- NOTE | 2019-02-24 09:20 | ER Document Report ---
HPI - HPI Time Seen by Provider: 02/24/19 09:11 Pain Level: Denies Context: Patient is a 33-year-old male who presents the emergency department with a chief complaint of a stye to his left lower lid. Patient was seen at urgent care yesterday and was given erythromycin eye ointment. He put his first dose and yesterday and patient states that his eye has gotten worse. This has happened before where he was prescribed erythromycin ointment. Patient is able to see o ut of his eye. Last time he was here he was admitted for periorbital cellulitis. Patient has an antibiotic ordered, but it will not be available until 3:00 this afternoon. Past medical history includes chronic back pain and chronic knee problems which he takes oxycodone for. - ROS Systems Reviewed and Negative: Yes All other systems reviewed and negative - CONSTITUTIONAL Constitutional: DENIES: Fever, Chills - EENT EENT: REPORTS: Eye problems - Stye to left lower lid. DENIES: Sore Throat, Ear Pain, Nasal Drainage-Clear, Congestion - NEURO Neurology: DENIES: Headache - CARDIOVASCULAR Cardiovascular: DENIES: Chest pain - RESPIRATORY Respiratory: DENIES: Coughing - GASTROINTESTINAL Gastrointestinal: DENIES: Abdominal Pain - REPRODUCTIVE Reproductive: DENIES: : Past Medical History - Social History Smoking Status: Never Smoker Chew tobacco use (# tins/day): No Frequency of alcohol use: None Drug Abuse: None Family History: Reviewed & Not Pertinent Patient has suicidal ideation: No Patient has homicidal ideation: No Pulmonary Medical History: Reports: Hx Asthma Neurological Medical History: Denies: Hx Migraine, Hx Seizures Renal/ Medical History: Denies: Hx Peritoneal Dialysis Psychiatric Medical History: Reports: Hx Anxiety, Hx Depression - anxiety, Hx Post Traumatic Stress Disorder - Immunizations Hx Diphtheria, Pertussis, Tetanus Vaccination: Yes Vertical Provider Document - CONSTITUTIONAL Agree With Documented VS: Yes Exam Limitations: No Limitations General Appearance: No Apparent Distress - INFECTION CONTROL TRAVEL OUTSIDE OF THE [place] IN LAST 30 DAYS: No - HEENT HEENT: Atraumatic, Conjuctival Injection - Left eye with stye on lower lid, Normocephalic, PERRLA - NECK Neck: Normal Inspection - RESPIRATORY Respiratory: No Respiratory Distress - CARDIOVASCULAR Cardiovascular: Regular Rhythm Pulses: Normal: Radial - MUSCULOSKELETAL/EXTREMETIES Musculoskeletal/Extremeties: FROM - NEURO Level of Consciousness: Awake, Alert, Appropriate - DERM Integumentary: Warm, Dry Course - Re-evaluation Re-evalutation: 02/24/19 09:22 Since the patient has been on erythromycin eye ointment, I have advised him to stop taking the medication and he will be given Polytrim eyedrops. I have [facility] and if his [facility] are not filled, to call the emergency department so I can fill a prescription for oral antibiotics. I have a very low suspicion for periorbital cellulitis, or any life-threatening etiology at this time. Follow-up precautions were given. Verbal discharge instructions were given to the patient. They verbalized understanding. They are stable for discharge. - Vital Signs Vital signs: Temp Pulse Resp BP Pulse Ox 97.6 F 91 16 143/94 H 97 02/24/19 07:18 02/24/19 07:18 02/24/19 07:18 02/24/19 07:18 02/24/19 07:18 Discharge - Discharge Clinical Impression: Hordeolum externum (stye) Qualifiers: Laterality: left Eyelid: lower Qualified Code(s): H00.015 - Hordeolum externum left lower eyelid Condition: Stable Disposition: HOME, SELF-CARE Instructions: Eyedrop Use ([facility]) Additional Instructions: You were seen today in the emergency department for a stye on your left lower lid. You are being sent home with Polytrim eyedrops. Place 1 drop into your left eye 4 times a day for 7 days. Please keep the area clean and wash her hands often. If you are unable to get your prescription filled, please call the emergency department and I will have your prescription filled for you. Forms: Return to Work Referrals: [facility] [Primary [facility]] - Follow up in 3-5 days
[2019-02-24 09:49] VITALS: BP 126/76
== END 2019-02-24 09:51 | disposition home or self-care (01) ==
LOC: ER 07:13
DX: H00.015 Hordeolum externum left lower eyelid (principal); G89.29 Other chronic pain; M54.9 Dorsalgia, unspecified
CPT/HCPCS: 99283; J3490

== ENCOUNTER 2019-04-24 21:49 | Emergency (ER) | payer OTHER ==
[2019-04-24] MEDS ORDERED: SULFAMETHOXAZOLE/TRIMETHOPRIM 800-160 MG TABLET PO ONE (23:05)
--- NOTE | 2019-04-24 23:08 | ER Document Report ---
HPI - HPI Time Seen by Provider: 04/24/19 22:58 Pain Level: 3 Context: Patient is a 33-year-old male who presents the emergency department with a chief complaint of left eye swelling. Patient reports yesterday developing redness and swelling to his left upper eyelid. Patient reports he does have a history of periorbital cellulitis and frequent infected styes. Patient reports earlier this year he had to be admitted for this. Patient reports he does have eyedrops at home that he did start today. Patient reports last time he got like this he did require oral antibiotics. Patient reports he was given clindamycin previously but that it upset his stomach and he is unable to take this. Patient denies fever. Patient reports he is having some yellow crusting coming from his eye. Patient denies visual changes or blurred vision. - REPRODUCTIVE Reproductive: DENIES: : Past Medical History - General Information source: Patient - Social History Smoking Status: Never Smoker Chew tobacco use (# tins/day): No Frequency of alcohol use: None Drug Abuse: None Lives with: Family Family History: Reviewed & Not Pertinent Patient has suicidal ideation: No Patient has homicidal ideation: No - Past Medical History Cardiac Medical History: Reports: None Pulmonary Medical History: Reports: Hx Asthma EENT Medical History: Reports: None Neurological Medical History: Reports: None. Denies: Hx Migraine, Hx Seizures Endocrine Medical History: Reports: None Renal/ Medical History: Reports: None. Denies: Hx Peritoneal Dialysis Malignancy Medical History: Reports None GI Medical History: Reports: None Musculoskeletal Medical History: Reports None Skin Medical History: Reports None Psychiatric Medical History: Reports: Hx Anxiety, Hx Depression - anxiety, Hx Post Traumatic Stress Disorder Traumatic Medical History: Reports: None Infectious Medical History: Reports: None Surgical Hx: Negative - Immunizations Hx Diphtheria, Pertussis, Tetanus Vaccination: Yes Vertical Provider Document - CONSTITUTIONAL Agree With Documented VS: Yes Exam Limitations: No Limitations General Appearance: No Apparent Distress - INFECTION CONTROL TRAVEL OUTSIDE OF THE [place] IN LAST 30 DAYS: No - HEENT HEENT: Atraumatic, Normal ENT Exam, Normocephalic, PERRLA Notes: Patient does have edema and erythema noted to the medial aspect of the left upper eyelid. The eyes not swollen shut. PERRLA. There is no further facial involvement. No drainage from the eye noted at this time. - NECK Neck: Normal Inspection - RESPIRATORY Respiratory: Breath Sounds Normal, No Respiratory Distress - CARDIOVASCULAR Cardiovascular: Regular Rate, Regular Rhythm - GI/ABDOMEN Gastrointestinal: Abdomen Soft, Abdomen Non-Tender, Normal Bowel Sounds - MUSCULOSKELETAL/EXTREMETIES Musculoskeletal/Extremeties: FROM, Non-Tender - NEURO Level of Consciousness: Awake, Alert, Appropriate - DERM Integumentary: Warm, Dry Course - Re-evaluation Re-evalutation: 04/24/19 23:33 We will treat the patient with oral antibiotics for developing cellulitis to the left eye. Patient encouraged to use warm compresses and use the antibiotic drops as previously prescribed. Patient to return if symptoms worsen. Patient verbalized understanding denies questions at this time. Patient reports that he wanted to get seen before the symptoms got worse like when he was admitted. - Vital Signs Vital signs: Temp Pulse Resp BP Pulse Ox 98.1 F 81 16 115/74 97 04/24/19 22:05 04/24/19 22:05 04/24/19 22:05 04/24/19 22:05 04/24/19 22:05 Discharge - Discharge Clinical Impression: Preseptal cellulitis of left upper eyelid Hordeolum of left eye Qualifiers: Hordeolum type: externum Eyelid: upper Qualified Code(s): H00.014 - Hordeolum externum left upper eyelid Condition: Stable Disposition: HOME, SELF-CARE Additional Instructions: Today was seen in the emergency department for a stye to the left eye. Does jamison ear that you have a developing cellulitis to the top eyelid. Please continue to use the drops that you have at home which is the Polytrim 1 drop 4 times a day to the left eye x7 days. You are also being treated with oral antibiotics. You are getting Bactrim and amoxicillin. You will take both of these twice a day for the next week. Please continue to use warm compresses. Would follow-up with the ethnic origins teacher since you do get these infections frequently and have had 7 in the past year as reported. Please return to the emergency department if your symptoms worsen. Take Tylenol and ibuprofen as needed for pain. Prescriptions: Amoxicillin Trihydrate [Amoxil 875 mg Tablet] 1 tab PO BID #14 tablet Sulfamethoxazole/Trimethoprim [Bactrim Ds Tablet] 1 each PO BID 7 Days #14 tablet Referrals: [facility] [NO [facility]AL MD] - Follow up as needed
[2019-04-24 23:40] VITALS: BP 121/64
== END 2019-04-24 23:53 | disposition home or self-care (01) ==
LOC: ER 21:49
DX: L03.213 Periorbital cellulitis (principal); H00.014 Hordeolum externum left upper eyelid; J45.909 Unspecified asthma, uncomplicated
CPT/HCPCS: 99283